=== PATIENT | male | born 1965 | race Caucasian/White ===

== ENCOUNTER 2017-09-27 11:03 | Emergency (ER) | payer MEDICAID ==
[~2017-09-27] VITALS: Ht 177.8 cm; Wt 70.0 kg
[~2017-09-27 11:03] MED LIST: ALBU18HF2 INH; AMLO5TAB PO; ATEN25TA PO; ATOR20TA66 PO; BENZ-34 PO; BUDE10.24 IH; IBUP-1986 PO; LISI30TA4 PO; TERA2CAP4 PO; [UNRECOGNIZED DRUG - CODE] INH
[2017-09-27] MEDS ORDERED: CLIN-80 PO (13:34)
[2017-09-27 13:38] VITALS: BP 121/91
== END 2017-09-27 13:39 | disposition home or self-care (01) ==
LOC: ER 11:04
DX: R51 Headache (principal); G89.29 Other chronic pain; J44.9 Chronic obstructive pulmonary disease, unspecified; I10 Essential (primary) hypertension; E78.00 Pure hypercholesterolemia, unspecified; M19.90 Unspecified osteoarthritis, unspecified site; F12.10 Cannabis abuse, uncomplicated; Z98.890 Other specified postprocedural states; Z88.0 Allergy status to penicillin; Z88.5 Allergy status to narcotic agent; Z79.899 Other long term (current) drug therapy
CPT/HCPCS: 99283

== ENCOUNTER 2018-03-25 12:13 | Emergency (ER) | payer MEDICAID ==
[~2018-03-25] VITALS: Ht 180.3 cm; Wt 89.0 kg
[~2018-03-25 12:13] MED LIST changes: -BENZ-34 PO; +BENZ-49 PO; +CLIN300C85 PO
[2018-03-25] MEDS ORDERED: normal saline 1000ml 1,000 ML IVB ONE (13:05)
[2018-03-25 13:13] VITALS: BP 103/63
== END 2018-03-25 13:14 | disposition home or self-care (01) ==
LOC: ER 12:14
DX: I95.9 Hypotension, unspecified (principal); E78.00 Pure hypercholesterolemia, unspecified; J44.9 Chronic obstructive pulmonary disease, unspecified; M19.90 Unspecified osteoarthritis, unspecified site; G89.29 Other chronic pain; F12.90 Cannabis use, unspecified, uncomplicated; I10 Essential (primary) hypertension; Z98.890 Other specified postprocedural states; Z88.0 Allergy status to penicillin; Z88.5 Allergy status to narcotic agent; Z79.899 Other long term (current) drug therapy; Z87.891 Personal history of nicotine dependence
CPT/HCPCS: 93005; 99284; J7030

== ENCOUNTER 2018-09-16 13:37 | Emergency (ER) | payer MEDICAID ==
[~2018-09-16] VITALS: Ht 180.3 cm; Wt 90.9 kg
[~2018-09-16 13:37] MED LIST changes: +ACET1TAB12 PO
[2018-09-16] MEDS ORDERED: METH-360 PO (15:09)
[2018-09-16] MEDS ORDERED: ketorolac tromethamine 15mg/ml inj. IM ONE (15:10)
[2018-09-16] MEDS ORDERED: orphenadrine citrate 60mg/2ml inj. IM ONE (15:10)
[2018-09-16] MEDS ORDERED: NAPR-56 PO (15:17)
[2018-09-16 15:44] VITALS: BP 152/98
== END 2018-09-16 15:45 | disposition home or self-care (01) ==
LOC: ER 13:37
DX: M54.5 Low back pain (principal); G89.29 Other chronic pain; I10 Essential (primary) hypertension; J44.9 Chronic obstructive pulmonary disease, unspecified; M19.90 Unspecified osteoarthritis, unspecified site; F12.10 Cannabis abuse, uncomplicated; E78.00 Pure hypercholesterolemia, unspecified; Z88.0 Allergy status to penicillin; Z79.899 Other long term (current) drug therapy
CPT/HCPCS: 96372; 99283; J1885; J2360

== ENCOUNTER 2019-08-20 10:38 | Emergency (ER) | payer MEDICAID ==
[~2019-08-20] VITALS: Ht 177.8 cm; Wt 91.8 kg
[~2019-08-20 10:38] MED LIST changes: +CLIN-90 PO; -CLIN300C85 PO; +METH-360 PO
[2019-08-20 10:50] VITALS: BP 155/94
[2019-08-20] MEDS ORDERED: ketorolac trometh inj. 60 MG/2 ML VIAL IM ONE (12:25)
== END 2019-08-20 12:38 | disposition home or self-care (01) ==
LOC: ER 10:39
DX: M76.61 Achilles tendinitis, right leg (principal); L72.0 Epidermal cyst; E78.00 Pure hypercholesterolemia, unspecified; I10 Essential (primary) hypertension; J44.9 Chronic obstructive pulmonary disease, unspecified; M19.90 Unspecified osteoarthritis, unspecified site; M54.5 Low back pain; F12.10 Cannabis abuse, uncomplicated; Z88.0 Allergy status to penicillin; Z98.890 Other specified postprocedural states; Z79.899 Other long term (current) drug therapy
CPT/HCPCS: 96372; 99283; J1885

== ENCOUNTER → 2020-06-12 | Outpatient (CLI) | payer MEDICAID ==
[~2020-06-12] MED LIST changes: -CLIN-90 PO; +CLIN-97 PO
== END | disposition home or self-care (01) ==
LOC: CARD DIAG 13:40
PROVIDERS: ATTEND Family Medicine
DX: I08.8 Other rheumatic multiple valve diseases (principal)
CPT/HCPCS: 71046; 93306

== ENCOUNTER 2021-08-30 09:20 | Emergency (ER) | payer MEDICAID ==
[~2021-08-30] VITALS: Ht 177.8 cm; Wt 88.6 kg
[2021-08-30 09:30] VITALS: BP 137/95
[2021-08-30] MEDS ORDERED: clindamycin 150mg capsule PO ONE (09:50)
[2021-08-30] MEDS ORDERED: rifampin 300mg capsule PO SCH (09:50)
[2021-08-30] MEDS ORDERED: TETanus/Pertussis (Acell)/Diphther VAC/PF (Tdap-Adult) 0.5ml syringe IMVAC ONE (10:00)
[2021-08-30] MEDS ORDERED: CLIN-142 PO (10:00)
== END 2021-08-30 10:56 | disposition home or self-care (01) ==
LOC: ER 09:21
DX: L03.114 Cellulitis of left upper limb (principal); E78.00 Pure hypercholesterolemia, unspecified; I10 Essential (primary) hypertension; J44.9 Chronic obstructive pulmonary disease, unspecified; G89.29 Other chronic pain; M54.9 Dorsalgia, unspecified; F12.10 Cannabis abuse, uncomplicated; Z88.0 Allergy status to penicillin; Z79.899 Other long term (current) drug therapy; W54.0XXA Bitten by dog, initial encounter; Y93.89 Activity, other specified; Y92.89 Other specified places as the place of occurrence of the external cause; Y99.8 Other external cause status
CPT/HCPCS: 73140; 90471; 90715; 99283

== ENCOUNTER 2022-06-28 11:31 | Emergency (ER) | payer MEDICAID ==
[~2022-06-28] VITALS: Ht 177.8 cm; Wt 89.0 kg
[~2022-06-28 11:31] MED LIST changes: -BENZ-49 PO; +TES100C PO
[2022-06-28 11:37] VITALS: BP 145/98
[2022-06-28] MEDS ORDERED: IBUP-1986 PO (13:39)
[2022-06-28] MEDS ORDERED: ketorolac trometh inj. 60 MG/2 ML VIAL IM ONE (13:40)
== END 2022-06-28 14:21 | disposition home or self-care (01) ==
LOC: ER 11:31
DX: S92.512A Displaced fracture of proximal phalanx of left lesser toe(s), initial encounter for closed fracture (principal); M79.675 Pain in left toe(s); E78.00 Pure hypercholesterolemia, unspecified; I10 Essential (primary) hypertension; J44.9 Chronic obstructive pulmonary disease, unspecified; M19.90 Unspecified osteoarthritis, unspecified site; G89.29 Other chronic pain; F12.90 Cannabis use, unspecified, uncomplicated; Z98.890 Other specified postprocedural states; Z88.0 Allergy status to penicillin; Z79.899 Other long term (current) drug therapy; Z79.2 Long term (current) use of antibiotics; W01.0XXA Fall on same level from slipping, tripping and stumbling without subsequent striking against object, initial encounter; Y93.89 Activity, other specified; Y92.89 Other specified places as the place of occurrence of the external cause; Y99.8 Other external cause status
CPT/HCPCS: 73660; 96372; 99283; J1885; L3260

== ENCOUNTER 2023-05-19 12:32 | Emergency (ER) | payer MEDICAID ==
[~2023-05-19] VITALS: Ht 180.3 cm; Wt 90.9 kg
[~2023-05-19 12:32] MED LIST changes: +BENZ-111 PO; -TES100C PO
[2023-05-19 12:51] VITALS: BP 147/92; PULSE 69; RESP 18; TEMP 97.9; O2SAT 95
== END 2023-05-19 16:25 | disposition left against medical advice (07) ==
LOC: ER 12:33
DX: S91.359A Open bite, unspecified foot, initial encounter (principal); Z53.21 Procedure and treatment not carried out due to patient leaving prior to being seen by health care provider; W54.0XXA Bitten by dog, initial encounter; Y93.9 Activity, unspecified; Y92.89 Other specified places as the place of occurrence of the external cause; Y99.8 Other external cause status
CPT/HCPCS: 99281

== ENCOUNTER 2023-12-26 15:17 | Outpatient (CLI) | payer MEDICAID | END 2023-12-26 23:59 | disposition home or self-care (01) | LOC: RAD 15:17 | PROVIDERS: ATTEND Physician Assistant | DX: R22.1 Localized swelling, mass and lump, neck (principal) | CPT/HCPCS: 76536 ==

== ENCOUNTER 2024-05-07 10:06 | Emergency (ER) | payer MEDICAID ==
[~2024-05-07] VITALS: Ht 177.8 cm; Wt 81.8 kg
[2024-05-07 10:10] VITALS: BP 163/89; PULSE 78; RESP 18; TEMP 97.8; O2SAT 18
--- NOTE | 2024-05-07 11:20 | NUR ---
pt did not want to wait for d/c vitals
== END 2024-05-07 11:26 | disposition home or self-care (01) ==
LOC: ER 10:07
DX: S83.8X2A Sprain of other specified parts of left knee, initial encounter (principal); F12.90 Cannabis use, unspecified, uncomplicated; E78.00 Pure hypercholesterolemia, unspecified; I10 Essential (primary) hypertension; E11.9 Type 2 diabetes mellitus without complications; J44.9 Chronic obstructive pulmonary disease, unspecified; M19.90 Unspecified osteoarthritis, unspecified site; G89.29 Other chronic pain; M54.9 Dorsalgia, unspecified; Z88.0 Allergy status to penicillin; Z79.899 Other long term (current) drug therapy; Z79.51 Long term (current) use of inhaled steroids; Z79.2 Long term (current) use of antibiotics; Z79.1 Long term (current) use of non-steroidal anti-inflammatories (NSAID); Z98.890 Other specified postprocedural states; X50.1XXA Overexertion from prolonged static or awkward postures, initial encounter; Y93.89 Activity, other specified; Y92.89 Other specified places as the place of occurrence of the external cause; Y99.8 Other external cause status
CPT/HCPCS: 73564; 99283

== ENCOUNTER 2024-12-31 17:42 | Emergency (ER) | payer MEDICAID ==
[~2024-12-31] VITALS: Ht 180.3 cm; Wt 84.8 kg
[2024-12-31 17:52] VITALS: TEMP 98
[2024-12-31 20:11] VITALS: BP 122/72; PULSE 74; RESP 16; O2SAT 97
[2024-12-31] MEDS ORDERED: PRED20TA PO (20:24)
[2024-12-31] MEDS ORDERED: ACYC-129 PO (20:24)
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
[2024-12-31] MEDS: valacyclovir 500mg tablet PO ONE (20:43)
[2024-12-31] MEDS: dexamethasone sod phosphate 10mg/ml inj IM STA (20:43)
== END 2024-12-31 20:48 | disposition home or self-care (01) ==
LOC: ER 17:42
DX: B02.9 Zoster without complications (principal); M54.2 Cervicalgia; E11.9 Type 2 diabetes mellitus without complications; E78.00 Pure hypercholesterolemia, unspecified; I10 Essential (primary) hypertension; F12.90 Cannabis use, unspecified, uncomplicated; J44.9 Chronic obstructive pulmonary disease, unspecified; M19.90 Unspecified osteoarthritis, unspecified site; Z88.0 Allergy status to penicillin; Z88.1 Allergy status to other antibiotic agents; Z88.8 Allergy status to other drugs, medicaments and biological substances
CPT/HCPCS: 96372; 99284; J1100

== ENCOUNTER 2025-08-26 19:43 | Inpatient (IN) | payer MEDICAID ==
[~2025-08-26] VITALS: Ht 177.8 cm; Wt 84.5 kg
[~2025-08-26 19:43] MED LIST changes: -BENZ-111 PO; +BENZ-268 PO; +CLIN-224 PO; -CLIN-97 PO; +PRED20TA PO
[2025-08-26 20:16] LABS: MEAN PLATELET VOLUME 9.8 FL (7.4-10.4); RED CELL DISTRIBUTION WIDTH 14.1 % (11.5-14.5)
--- NOTE | 2025-08-26 20:35 | RADIOLOGY REPORT ---
EXAM: DI CHEST,SINGLE VIEW TECHNIQUE: Single frontal chest radiograph CLINICAL HISTORY: CP COMPARISON: CHEST,TWO VIEWS on DOS: 06/12/20 FINDINGS/IMPRESSION: The lungs are clear. The cardiomediastinal silhouette is mildly enlarged, likely accentuated by technique. No pleural effusion or pneumothorax. No acute osseous abnormality.
[2025-08-26 20:36] LABS: CREATININE 0.79 MG/DL (0.60-1.10); PRO BRAIN NATRIURETIC PEPTIDE 70 PG/ML (0-125); eCRCL 100 ML/MIN; eGFR > 90 ML/MIN
[2025-08-26 20:49] LABS: TOTAL CARBON DIOXIDE 45.8 MMOL/L (24-32)
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
[2025-08-26] MEDS ORDERED: morphine 4 MG/ML inj SYRINge IV PRN ×2 (21:30)
[2025-08-26] MEDS ORDERED: ondansetron/PF 4mg/2ml inj IV PRN (21:30)
[2025-08-26] MEDS ORDERED: potassium Cl 20 mEq SR tablet PO PRN ×2 (21:30)
[2025-08-26] MEDS ORDERED: magnesium sulf-water 4G/100mL 100 ML IV PRN (21:30)
[2025-08-26] MEDS ORDERED: mag hydrox/Alum hydrox/simeth 30ml oral suspension PO PRN (21:30)
[2025-08-26] MEDS ORDERED: magnesium Cl slow-release 64mg tablet PO PRN (21:30)
[2025-08-26] MEDS ORDERED: magnesium sulf-water 2g/50mL 50 ML IV PRN (21:30)
[2025-08-26] MEDS ORDERED: magnesium hydroxide 30ml (MOM) UD suspension PO PRN (21:30)
[2025-08-26] MEDS ORDERED: potassium Cl 40MEQ/1/2NS 520ml 520 ML IV PRN (21:30)
[2025-08-26] MEDS: HYDROcodone/acetaminophen 5mg/325mg tablet PO ONE (21:48)
[2025-08-26 21:49] LABS: LEUKOCYTE ESTERASE ,URINE NEGATIVE (Neg); NITRITES, URINE NEGATIVE (Neg); OCCULT BLOOD,URINE NEGATIVE (Neg)
[2025-08-26 21:50] LABS: PHOSPHORUS 2.7 MG/DL (2.3-4.5)
[2025-08-26 21:52] LABS: UA COLLECTION TYPE CLN CATCH MIDSTREAM
--- NOTE | 2025-08-26 22:12 | HISTORY AND PHYSICAL-Residence ---
History & Physical Providers to CC Resident Creating Document: TAVIA FIELDS, VANESSA ~ History of Present Illness Primary Medical Doctor: Reason for Admit\Complaint: Chest pain History of Present Illness 60-year-old male(poor historian with inconsistent history) with past medical history of hypertension hyperlipidemia, obstructive sleep apnea, COPD on home oxygen of 4 L presented to the ER with a chief complaint of chest pain. He endorses chest pain, more on the left side, rated 4- 6/10 , stabbing type, more spreading over the left side of the chest aggravated with exertion but without relieving factors, not radiating to left upper arm and neck for the past one day. He reported shortness of breath, aggravated with walking for a while and not associated with orthopnea and PND. He reports chronic cough, low energy levels, swelling of both legs for the past couple of months. He feels foggy and trying to articulate the facts while speaking . He denied fever, palpitations, bladder and bowel disturbances, sleep and appetite disturbances, diaphoresis, weakness of limbs, slurring of speech, deviation of angle of mouth, seizures. Discussed code status with the patient and patient wants to be in full code Allergies: Coded Allergies: Penicillins (Unverified Allergy, Unknown, 08/26/25) Tolerated Cefepime and Rocephin during hospital stay 09/23/2016 Uncoded Allergies: beestings (Allergy, Mild, swelling, 12/04/10) Home Medications Home Medications Active Prednisone* (Prednisone) 20 Mg Tablet 1 Tab PO DAILY 9 Days Take three tabs p.o. once a day for three days. Then take two tabs once a day p.o. for three days. Then take one tab p.o. once a day for three days. Ibuprofen 800 Mg Tablet 1 Tab PO Q8H 10 Days Robaxin-750 (Methocarbamol) 750 Mg Tablet 1 Tab PO Q12H 10 Days Tylenol with Codeine #3 Tablet (Acetaminophen with Codeine) 1 Each Tablet 1 Tab PO Q6H PRN 7 Days Clindamycin HCL* (Clindamycin HCl) 300 Mg Capsule 1 Cap PO Q6H Pulmoneb Lt Compressor Nebul (Nebulizer/Compressor) 1 Each Each Unit INH QID PRN PRN Reported Terazosin HCl 2 Mg Capsule 1 Cap PO HS 30 Days Atorvastatin Calcium 20 Mg Tablet 1 Tab PO DAILY 30 Days Lisinopril 30 Mg Tablet 1 Tab PO DAILY 30 Days Atenolol 25 Mg Tablet 1 Tablet PO DAILY Ibuprofen 800 Mg Tablet 1 Tab PO Q8H PRN 10 Days Benzonatate 100 Mg Capsule 1 Cap PO Q8H 10 Days Ventolin Hfa (Albuterol) 8.5 Gm Inhaler 2 Puffs INH Q4HPRN PRN Amlodipine Besylate 5 Mg Tablet 1 Tablet PO DAILY Symbicort 80-4.5 Mcg Inhaler (Budesonide/Formoterol Fumarate) 10.2 Gm Hfa.aer.ad 2 Puff IH BID Past Medical History Past Medical History COPD(diagnosed at the age of 41 emphysema is diagnosed with the age of 24( on home oxygen of 4 L) Issues with breathing from (we do not have the diagnosis) Acute respiratory failure Metabolic alkalosis with respiratory acidosis Hypertension Cardiac arrest Bilateral pneumonia with streptococcal pneumoniae complicated by acute respiratory distress syndrome Herpes zoster Head injury History of impacted right ear cerumen GERD Past Surgical History Surgical History Comment Head injury -status post left subdural hematoma surgical evacuation Tracheostomy at the age of 3 months Family History Family History: (DM Type 2) Diabetes mellitus type 2 FATHER MOTHER Past Social History Social History Comment He is still actively smoking but he endorses that he had 3 cigarettes in the past 40 days(previously he used to take half to 1 pack per day started at the age of 11 Alcohol: Sober for 3 years Denied illicit drug use. He is living in his home with ex-girlfriend Content Publisher: Dr. bhatt Smoking: Quit greater than 1 year Alcohol Use: None Drug Use: Marijuana Lives with: S/O, Other Lives In: Home Occupation: disabled ROS All Other Systems: Reviewed and Negative ROS Reviewed in full and negative except positive pertinent as in HPI Exam Vitals: Vital Signs Date Time Temp Pulse Resp B/P (MAP) Pulse Ox O2 Delivery O2 Flow Rate FiO2 08/26/25 20:43 98.0 89 16 125/73 (90) 96 5.0 General: General: Alert, awake, oriented to time place person. In mild respiratory distress. Head: Normocephalic and atraumatic. Eyes: Conjunctival normal. EOMI. PERRL. ENT: Mucous membranes moist. Neck: Supple, trachea is midline. Chest: Bilateral normal vesicular breath sounds are heard. No crepitations are heard. Occasional bilateral suprascapular and interscapular wheezing are present. There is no accessory muscle use or retractions. Cardiac: RRR without murmurs, gallops, or rubs. Abd: Soft, nondistended, nontender, with normoactive bowel sounds. No guarding, rebound, or rigidity. Extremities: Normal strength. Normal range of motion. 1+ bilateral pitting edema is present. Back: No midline spinal or CVA tenderness. Skin: Warm and dry with no significant rash appreciated. Neuro: Higher mental functions are normal. Motor system: Tone, bulk, power are normal. Deep tendon reflexes are intact. Sensory system: No deficits. Cranial nerves 2-12 is grossly intact. No cerebellum dysfunction signs. No signs of meningitis. Diagnostic Data Last Recorded Lab Results: 08/26/25199908/26/251999 Diagnostic Data: Laboratory Tests Test 08/26/25 22:03 D-Dimer Comment Coagulation Comments Advance Care Planning Advanced Care plannin - 30 Minutes Additional Plan Chest pain likely secondary to possible unstable angina EKG showed left axis deviation, LAFB and inverted P waves and distinct to P-wave morphology and T-wave inversions in V1 V2 V3, AVF, QS complexes in V1 V2 V3 Troponins 10,11,11, proBNP of 70 Ordered Lexiscan and follow up with the results Started on aspirin 325 mg stat followed by 81 mg p.o. daily and nitroglycerin 0.4 mg sublingual p.r.n. for chest pain and atorvastatin 80 mg p.o. daily Consult patient sitter in a.m. if Lexiscan is positive Acute on chronic hypoxemic and hypercapnic respiratory failure 2/2 1)Acute exacerbation of advanced COPD 2)Obstructive sleep apnea There is a definitive oxygen demand rise when compared to the home oxygen levels of 4. WBC counts are 6.1 PCO2 is 45.8. Ordered ABG Sodium of 148 Oxygen demand was increased from 4 L(at home) to 5 L Started on, methylprednisolone 125 mg IV followed by 40 mg q.6 H IV Incentive spirometer flutter valve q.1h Albuterol q.4h p.r.n. and DuoNeb q.4h scheduled Covering Gram-positive, Gram-negative, atypical bacteria with ceftriaxone, azithromycin D-dimer is negative U tox showed cannabinoid positive Urinalysis is normal Normocytic normochromic anemia H&H is 11.8 and 37.2 Continue to monitor H&H Hyperlipidemia Ordered lipid panel On home medications of atorvastatin 40 mg p.o. daily and we will continue Hypertension On amlodipine 5 mg p.o. daily, atenolol 25 mg p.o. daily, lisinopril 30 mg p.o. daily Current blood pressure is in normal level 125/73 and we will restart the medications after medication reconciliation Arthritis Chronic back pain On [place] and ibuprofen Questionable BPH We will continue terazosin Med rec is incompletely done. Review the medications once med rec was completely done. Tavia Fields IM resident, PGY 2 I discussed the case with the resident team We wet to see was asleep I suggest a pulm consult as well as cardiology to also see the pt suggest CT chest as well Date of Service: Aug 26, 2025 Billing Provider: MAMI CARRION MD, VENKATESH, RES Aug 26, 2025 22:12 MAMI CARRION MD Aug 27, 2025 04:32
[2025-08-26] MEDS ORDERED: ATOR40TA72 PO (22:23)
[2025-08-26] MEDS ORDERED: HYDR-3968 PO (22:23)
[2025-08-26] MEDS ORDERED: UMEC1BLS PO (22:23)
[2025-08-26] MEDS ORDERED: TIOT4MIS2 INH (22:23)
[2025-08-26 22:27] LABS: APTT 27 SECONDS (22-32); INR 1.0 INR
[2025-08-26 22:32] LABS: SQUAMOUS EPITHELIAL CELL,UR FEW /LPF (FEW)
[2025-08-26 23:04] LABS: URINE AMPHETAMINE SCREEN NEGATIVE (Neg); URINE BARBITUATE SCREEN NEGATIVE (Neg); URINE BENZODIAZEPINES SCREEN NEGATIVE (Neg); URINE CANNABINOID SCREEN POSITIVE (Neg); URINE COCAINE SCREEN NEGATIVE (Neg); URINE METHADONE SCREEN NEGATIVE (Neg); URINE OPIATE SCREEN POSITIVE (Neg); URINE PHENCYCLIDINE SCREEN NEGATIVE (Neg)
[2025-08-27] VITALS (28 sets, daily range): BP systolic 102–124; BP diastolic 53–80; PULSE 63–108; RESP 14–23; TEMP 97–97.9; O2SAT 90–98
[2025-08-27] MEDS ORDERED: albuterol 2.5 MG/3 ML nebule NEB PRN (00:20)
[2025-08-27] MEDS: heparin, porcine 5000 units/ml vial SQ SCH (00:34)
[2025-08-27] MEDS: CefTRIAXone/D5W-Rocephin 1gm 50 ML IV ONE (00:41)
[2025-08-27] MEDS ORDERED: aminophylline 250mg/10ml inj. IV PRN (01:00)
[2025-08-27] MEDS ORDERED: regadenoson 0.4mg/5ml syringe IV PRN (01:00)
[2025-08-27] MEDS ORDERED: metoprolol tartrate 1mg/ml inj IV PRN (01:00)
[2025-08-27] MEDS: aspirin 325mg tablet, delayed-release (Ecotrin) PO ONE (01:56)
[2025-08-27] MEDS: methylPREDNISolone sod succ/PF 40mg inj. IV SCH (02:01)
[2025-08-27] MEDS: ipratropium/albuterol 3ml nebule NEB SCH (02:25)
[2025-08-27 03:02] LABS: ABG BASE EXCESS 14.7 mmol/L (-2.0-3.0); ABG HCO3 45.6 mmol/L (21.0-28.0); ABG OXYGEN SATURATION 93.3 % (94.0-98.0); ABG PCO2 (T) 98.9 mmHg (35.0-48.0); ABG PH (T) 7.281 (7.350-7.450); ABG PO2 (T) 66.9 mmHg (83.0-108.0); FCOHb 2.4 % (0.5-1.5); FHHb 6.5 % (0.0-5.0); FIO2 36.0 mmHg/%; FLOW 4 L/min; FMetHb 0.8 % (0.0-1.5); FO2Hb 90.3 % (94.0-98.0); MODE NASAL CANNULA; PATIENT TEMPERATURE 36.8; TOTAL HEMOGLOBIN 12.3 G/dl (13.5-17.5)
[2025-08-27 05:17] LABS: ABG BASE EXCESS 14.2 mmol/L (-2.0-3.0); ABG HCO3 44.2 mmol/L (21.0-28.0); ABG OXYGEN SATURATION 93.8 % (94.0-98.0); ABG PCO2 (T) 89.3 mmHg (35.0-48.0); ABG PH (T) 7.312 (7.350-7.450); ABG PO2 (T) 71.9 mmHg (83.0-108.0); ALLEN'S TEST Modified; FCOHb 1.6 % (0.5-1.5); FHHb 6.1 % (0.0-5.0); FIO2 40.0 mmHg/%; FMetHb 0.7 % (0.0-1.5); FO2Hb 91.6 % (94.0-98.0); MODE COOL AEROSOL; PATIENT TEMPERATURE 37.0; RESPIRATORY RATE 12 b/min; TOTAL HEMOGLOBIN 12.3 G/dl (13.5-17.5)
[2025-08-27] MEDS ORDERED: acetaZOLAMIDE IV 500mg inj IV ONE (06:10)
[2025-08-27 07:05] LABS: MEAN PLATELET VOLUME 9.6 FL (7.4-10.4); RED CELL DISTRIBUTION WIDTH 14.3 % (11.5-14.5)
[2025-08-27 07:19] LABS: CHOL/HDL RATIO 1.9 (0.00-4.99); CREATININE 0.68 MG/DL (0.60-1.10); LDL CHOLESTEROL 70 MG/DL (50-100); eCRCL 116 ML/MIN; eGFR > 90 ML/MIN
--- NOTE | 2025-08-27 07:34 | ELECTROCARDIOGRAPH REPORT ---
[facility] Test Date: 2025-08-26 Test Time: 19:49:59 Pat Name: FREDO ROWLAND Department: EMERGENCY ROOM Room: [place] [address] B Gender: M [employer] Building: : 1965 Requested By: PAVAN WEATHERS Order Number: [id number] Reading MD: Dr. Juan Drake Measurements Intervals [place] Rate: 78 P: 77 SD: 139 QRS: 31 QRSD: 82 T: 79 QT: 376 QTc: 429 Interpretive Statements Sinus rhythm Probable left atrial enlargement Anterior infarct, old Baseline wander in lead(s) V5 Electronically Signed On 08-28-2025 21:14:[address] Juan Drake Please click the below link to view image of tracing.
[2025-08-27 07:38] LABS: TOTAL CARBON DIOXIDE 43.1 MMOL/L (24-32)
[2025-08-27] MEDS: K and/or MAG REPLACEMENT MC SCH (08:00)
[2025-08-27 08:03] LABS: ABG BASE EXCESS 9.4 mmol/L (-2.0-3.0); ABG HCO3 39.7 mmol/L (21.0-28.0); ABG OXYGEN SATURATION 95.5 % (94.0-98.0); ABG PCO2 (T) 89.5 mmHg (35.0-48.0); ABG PH (T) 7.265 (7.350-7.450); ABG PO2 (T) 77.5 mmHg (83.0-108.0); ALLEN'S TEST POSITIVE; FCOHb 2.1 % (0.5-1.5); FHHb 4.4 % (0.0-5.0); FIO2 40.0 mmHg/%; FMetHb 0.8 % (0.0-1.5); FO2Hb 92.7 % (94.0-98.0); MODE MASK - BIPAP; PATIENT TEMPERATURE 37.0; RESPIRATORY RATE 14 b/min; TIDAL VOLUME 518 mL; TOTAL HEMOGLOBIN 12.6 G/dl (13.5-17.5)
[2025-08-27] MEDS: docusate sod 100mg capsule PO SCH (08:53)
[2025-08-27] MEDS: aspirin 81mg, enteric-coated 1 TAB TABLET.DR PO SCH (08:53)
[2025-08-27] MEDS: azithromycin/NS 500mg/250ml 250 ML IV SCH (08:54)
[2025-08-27 11:19] LABS: ABG BASE EXCESS 5.7 mmol/L (-2.0-3.0); ABG HCO3 35.4 mmol/L (21.0-28.0); ABG OXYGEN SATURATION 88.8 % (94.0-98.0); ABG PCO2 (T) 81.5 mmHg (35.0-48.0); ABG PH (T) 7.256 (7.350-7.450); ABG PO2 (T) 55.9 mmHg (83.0-108.0); ALLEN'S TEST POSITIVE; FCOHb 1.8 % (0.5-1.5); FHHb 10.9 % (0.0-5.0); FIO2 32.0 mmHg/%; FLOW 3 L/min; FMetHb 0.8 % (0.0-1.5); FO2Hb 86.5 % (94.0-98.0); MODE NASAL CANNULA; PATIENT TEMPERATURE 37.0; TOTAL HEMOGLOBIN 12.7 G/dl (13.5-17.5)
--- NOTE | 2025-08-27 12:39 | CARDIOLOGY REPORT ---
APPROVED REPORT EXAM: Comprehensive 2D, Doppler, and color-flow Echocardiogram. Patient Location: 30[address] Blood Pressure: 124/80 mmHg Heart Rate: 67 bpm Rhythm: SINUS Indications PULMONARY HYPERTENSION HYPERTENSION HYPERLIPIDEMIA CHEST PAIN Transactional Paralegal: Bonny Schilling MD Previous echo: 06/12/20 [facility] (EF 50-55%, mild MR, mod TR) 2D Dimensions IVSd 1.1 (0.7-1.1cm) LVDd 4.5 cm PWd 1.3 (0.7-1.1cm) IVSs 1.4 (0.8-1.2cm) LVDs 3.2 (2.5-4.0cm) PWs 1.6 (0.8-1.2cm) LVOT Diameter 2.09 (1.8-2.4cm) LVEF(%) 56.7 (>50%) IVC 20.93 mm FS (%) 29.6 % SV 52.6 ml CO 4.5 L/min M-Mode Dimensions Left Atrium(MM) 4.50 (2.5-4.0cm) IVSd 1.11 (0.7-1.1cm) LVDd 5.05 (4.0-5.6cm) Aortic Root 2.23 (2.2-3.7cm) PWd 1.06 (0.7-1.1cm) IVSs 1.73 cm LVDs 3.60 (2.0-3.8cm) FS (%) 29 % PWs 1.30 cm ESV(Teich) 54.6 ml LVEF(%) 55 (>50%) Aortic Valve AoV Peak Gato. 143.9 cm/s AoV VTI 28.5 cm AO Peak GR. 8.3 mmHg AO Mean GR. 4 mmHg LVOT VTI 19.09 cm LVOT Peak Gato. 88.7 cm/s CELENA(VTI)/BSA 2.30 cm2/m2 CELENA (VTI) 2.30 cm2 AV DI 0.67 % Mitral Valve MV E Velocity 67.7 cm/s MV Peak Gr. 4 mmHg MV DECEL TIME 356 ms MV A Velocity 87.5 cm/s MV PHT 60 ms E/A Ratio 0.8 MVA (PHT) 3.67 cm2 MV VMax 104.5 cm/s Tricuspid Valve TR P. Velocity 232 cm/s RAP ESTIMATE 10 mmHg TR Peak Gr. 22 mmHg RVSP 32 mmHg Pulmonary Vein S1 Velocity 48.6 cm/s D2 Velocity 48.3 cm/s PVa Velocity 29.4 cm/s PVa Duration 112 msec LEFT VENTRICLE Normal LV size and function. Mild concentric hypertrophy. Overall LVEF is 55-60%. RIGHT VENTRICLE RV size and function appear normal. RVSP is estimated at 32 mmHg. ATRIA Left atrium is mildly dilated. AORTIC VALVE Trileaflet AV appears mildly sclerotic without gross stenosis or insufficiency by color and spectral flow Doppler. Poor Doppler angles due to lack of adequate imaging windows, quantitative data must be clinically correlated. MITRAL VALVE Mild MV annular calcification without stenosis. Trace regurgitation by color and spectral flow Doppler. TRICUSPID VALVE TV appears structurally normal with trace regurgitation by color and spectral flow Doppler. PULMONIC VALVE Pulmonic valve is not well visualized. GREAT VESSELS The aortic root is normal in size. IVC is upper limit normal in size and collapses greater than 50% with inspiration. PERICARDIUM Normal pericardium. No effusion. Other Information Study Quality: Adequate Conclusion Overall LVEF is 55-60%. Normal LV size and function. Mild concentric hypertrophy. RV size and function appear normal. RVSP is estimated at 32 mmHg. Trileaflet AV appears mildly sclerotic without gross stenosis or insufficiency by color and spectral flow Doppler. Poor Doppler angles due to lack of adequate imaging windows, quantitative data must be clinically correlated. Mild MV annular calcification without stenosis. Trace regurgitation by color and spectral flow Doppler. TV appears structurally normal with trace regurgitation by color and spectral flow Doppler. Pulmonic valve is not well visualized. Normal pericardium. No effusion.
--- NOTE | 2025-08-27 13:50 | RADIOLOGY REPORT ---
CLINICAL HISTORY: Slurred speech TECHNIQUE: Helical scanning was performed of the head from the skull base to the vertex. Multiplanar reconstructions were performed. This exam was performed according to our departmental dose optimization program. Up-to-date CT equipment and radiation dose reduction techniques are utilized as appropriate. CTDI 67 DLP 1369 COMPARISON: None FINDINGS: Evaluation is limited due to image degradation secondary to patient motion. There is no evidence for acute intracranial hemorrhage, acute ischemic changes, mass, mass effect, or extra-axial fluid collection. There is no hydrocephalus or midline shift. There is no effacement of the cerebral sulci and basal subarachnoid cisterns. The aguero-white matter differentiation is well maintained. There has been left frontal craniotomy. 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 The imaged paranasal sinuses are clear. IMPRESSION: No acute intracranial abnormality seen. Left frontal craniotomy. 4 mm cerebellar tonsillar ectopia.
--- NOTE | 2025-08-27 14:09 | RADIOLOGY REPORT ---
CT Chest without intravenous contrast INDICATION: hypoxemia, persistent chest pain TECHNIQUE: Multidetector spiral CT of the chest was performed from the lung apices to the upper abdomen. Axial, coronal and sagittal multiplanar reformats were performed. Radiation Dose : 1. Chest: CTDI volume is 16.35 mGy. Dose-length product is 536.74 mGy*cm The dose indicators for CT are the volume Computed Tomography (CT) Dose Index (CTDIvol) and the Dose Length Product (DLP), and are measured in units of mGy and mGy-cm, respectively. These indicators are not patient dose, but values generated from the CT scanner acquisition factors. The report includes radiation exposure data for exposures received during this examination. COMPARISON: DI CHEST,SINGLE VIEW on DOS: 08/26/25, CHEST,TWO VIEWS on DOS: 06/12/20 FINDINGS: Lower neck: Normal thyroid. Lungs: Central airways patent. Moderate diffuse centrilobular emphysema. No focal airspace disease. No suspect pulmonary nodules. Mild right basilar atelectasis. Heart/Vascular Structures: Mild multichamber cardiac enlargement. No pericardial effusion. Lymph Nodes: No adenopathy Pleura: No pleural effusion or significant pneumothorax. Musculoskeletal: No acute osseous abnormality. Soft tissues: Normal. Upper abdomen: Limited portions of the upper abdomen are unremarkable. IMPRESSION: Moderate emphysema. Radiation optimization: All CT scans at this facility use at least one of these dose optimization techniques: automated exposure control mA and/or kV adjustment per patient size (includes targeted exams where dose is matched to clinical indication) or iterative reconstruction.
[2025-08-27 15:39] LABS: ABG BASE EXCESS 9.2 mmol/L (-2.0-3.0); ABG HCO3 38.2 mmol/L (21.0-28.0); ABG OXYGEN SATURATION 94.4 % (94.0-98.0); ABG PCO2 (T) 76.4 mmHg (35.0-48.0); ABG PH (T) 7.317 (7.350-7.450); ABG PO2 (T) 69.5 mmHg (83.0-108.0); ALLEN'S TEST POSITIVE; FCOHb 1.4 % (0.5-1.5); FHHb 5.5 % (0.0-5.0); FIO2 36.0 mmHg/%; FMetHb 0.8 % (0.0-1.5); FO2Hb 92.3 % (94.0-98.0); MODE MASK - BIPAP; PATIENT TEMPERATURE 37.0; RESPIRATORY RATE 16 b/min; TIDAL VOLUME 643 mL; TOTAL HEMOGLOBIN 12.8 G/dl (13.5-17.5)
--- NOTE | 2025-08-27 17:33 | PROGRESS NOTE- Residence ---
Progress Note - Resident Providers to CC Resident Creating Document: MARLENY GAMBINO RES ~ Antibiotic Timeout Antibiotic Ordered?: Yes Subjective Patient was seen and examined at the bedside. He was on BiPAP overnight and reports improvement of the shortness for breath and resolution of the chest pain during the morning. Later in the day he was refusing to use BiPAP and was advised to continue at night. Objective Vital Signs Date Time Temp Pulse Resp B/P (MAP) Pulse Ox O2 Delivery O2 Flow Rate FiO2 08/27/25 15:42 98 16 Nasal Cannula 4.0 08/27/25 15:32 94 40 08/27/25 15:00 97.9 120/53 (75) Result Diagram: 08/27/25 0629 08/27/25 0629 Awake , alert, and oriented x4, mild respiratory distress HEENT: Atraumatic, normocephalic, EOMI, anicteric sclera ; pink conjunctiva Neck: Trachea midline. Supple, full range of motion, no JVD Cardiac: Regular rhythm, regular rate with no murmurs all over the precordium. Respiratory: Diminished air movement bilaterally, sparse expiratory wheezing , no rub or rales, Chest wall is symmetric and without deformity. Gastrointestinal: Abdomen symmetric, non-distended, soft, non-tender, normal bowel sounds x4 quadrant, normoactive, no hepatosplenomegaly Musculoskeletal: Trace pedal edema Skin: Warm and dry Coagulation Studies Laboratory Tests Test 08/26/25 22:03 Prothrombin Time 10.4 SECONDS (9.0-12.0) INR International Normalized Ratio 1.0 INR Activated Partial Thromboplast Time 27 SECONDS (22-32) D-Dimer 0.31 MG/L FEU (0-0.50) D-Dimer Comment Coagulation Comments Plan Plan Assessment This is a 70-year-old male patient with a past medical history of advanced COPD, hypoxemic respiratory failure, hypertension, admitted for COPD exacerbation, chest pain and hypercapnia. 1. Acute on chronic hypoxemic and hypercapnic respiratory failure COPD exacerbation Assessment - baseline is 4L/min, presents with worsening oxygen requirement and shortness for breath - ABG: CO2 98.9 -> 76.4; pH 7.28 -> 7.31; pO2 66.9, HCO3 45.9 - CXR: The lungs are clear. The cardiomediastinal silhouette is mildly enlarged. No pleural effusion or pneumothorax - Chest CT: Moderate diffuse centrilobular emphysema. No focal airspace disease. No suspect pulmonary nodules. Mild right basilar atelectasis. Plan - continuous BiPAP recommended - especially at bedtime - DuoNebs q.4 H scheduled - Solu-Medrol 62.5 mg b.i.d. - continue home LABA/LAMA/ICS - continue Diamox daily - continue ceftriaxone and azithromycin 2. Chest pain/rule out ACS Assessment - Heart score, 5 points - EKG: left axis deviation, nonspecific ST-T changes - Troponins 10,11,11, proBNP 70 - Echo: Mild concentric hypertrophy. Overall LVEF is 55-60%. Plan - pending Lexiscan - continue aspirin, metoprolol and atorvastatin 3. Hyperlipidemia - triglycerides 37, LDL 70, HDL 101 - continue atorvastatin On home medications of atorvastatin 40 mg p.o. daily and we will continue 4. Hypertension - well controlled - continue amlodipine 5 mg p.o. daily and lisinopril 30 mg p.o. daily 5. Other comorbidities Chronic back pain BPH - pain management as needed - continue terazosin Code Status: Full code DVT prophylaxis: Heparin Analgesia/sedation: Morphine/[place] Line/tube: PIV GI prophylaxis: None Nutrition: Heart healthy diet Prognosis: Guarded Disposition: Continue medical treatment. BiPAP recommended as tolerated. Resident attestation The above note has been reviewed and supervised by a senior resident PGY2/PGY3 Patient was seen, examined and discussed with the attending physician Dr Boyle Date of Service: Aug 27, 2025 Billing Provider: TORSTEN BOYLE MD Common Visit Codes: [id number] INP/OBS CARE(HIGH) MARLENY GAMBINO, VANESSA Aug 27, 2025 17:33 TORSTEN BOYLE MD Aug 27, 2025 19:44
[2025-08-27] MEDS: HYDROcodone/acetaminophen 5mg/325mg tablet PO PRN (20:02)
[2025-08-27] MEDS: CefTRIAXone/D5W-Rocephin 1gm 50 ML IV SCH (20:02)
[2025-08-28] VITALS (28 sets, daily range): BP systolic 93–121; BP diastolic 51–73; PULSE 73–112; RESP 16–24; TEMP 97.6–98.1; O2SAT 88–96
[2025-08-28] MEDS: ipratropium 0.5 MG/2.5ML nebule NEB SCH (07:09)
[2025-08-28 07:16] LABS: MEAN PLATELET VOLUME 10.8 FL (7.4-10.4); RED CELL DISTRIBUTION WIDTH 14.5 % (11.5-14.5)
[2025-08-28 07:37] LABS: CREATININE 0.71 MG/DL (0.60-1.10); TOTAL CARBON DIOXIDE 33.5 MMOL/L (24-32); eCRCL 111 ML/MIN; eGFR > 90 ML/MIN
[2025-08-28] MEDS: regadenoson 0.4mg/5ml syringe IV ONE (09:03)
--- NOTE | 2025-08-28 10:24 | RADIOLOGY REPORT ---
HISTORY: Unstable angina TECHNIQUE: At peak stress, 33.4 mCi of sestamibi was administered intravenously. Soon thereafter, gated SPECT imaging of the heart was performed with the patient in the supine position. At rest, 8.5 mCi of sestamibi was administered intravenously. Soon thereafter, gated SPECT imaging of the heart was performed with the patient in the supine position. FINDINGS: There is a small fixed perfusion defect at the inferior wall from apex to mid cavity. No reversible perfusion defect is seen. The left ventricular cavity is normal in size. Calculated LVEF is 64 %. No segmental wall motion abnormality. IMPRESSION: Small fixed perfusion defect at the inferior wall from apex to mid cavity. No reversible perfusion defect. Ejection fraction = 64%.
--- NOTE | 2025-08-28 12:33 | PROGRESS NOTE- Residence ---
Progress Note - Resident Providers to CC Resident Creating Document: MARLENY GAMBINO RES ~ Antibiotic Timeout Antibiotic Ordered?: Yes Subjective Patient was seen and examined at the bedside. He was on BiPAP overnight and reports improvement of the shortness for breath with occasional dry cough. No chest pain reported since admission. Objective Vital Signs Date Time Temp Pulse Resp B/P (MAP) Pulse Ox O2 Delivery O2 Flow Rate FiO2 08/28/25 11:49 16 08/28/25 11:05 94 Nasal Cannula 4.0 08/28/25 10:59 90 36 08/28/25 09:13 119/70 08/28/25 02:00 97.6 Result Diagram: 08/28/25 0635 08/28/25 0635 Awake , alert, and oriented x4, mild respiratory distress HEENT: Atraumatic, normocephalic, EOMI, anicteric sclera ; pink conjunctiva Neck: Trachea midline. Supple, full range of motion, no JVD Cardiac: Regular rhythm, regular rate with no murmurs all over the precordium. Respiratory: Diminished air movement bilaterally, sparse expiratory wheezing , no rub or rales, Chest wall is symmetric and without deformity. Gastrointestinal: Abdomen symmetric, non-distended, soft, non-tender, normal bowel sounds x4 quadrant, normoactive, no hepatosplenomegaly Musculoskeletal: Trace pedal edema Skin: Warm and dry Coagulation Studies Laboratory Tests Test 08/26/25 22:03 Prothrombin Time 10.4 SECONDS (9.0-12.0) INR International Normalized Ratio 1.0 INR Activated Partial Thromboplast Time 27 SECONDS (22-32) D-Dimer 0.31 MG/L FEU (0-0.50) D-Dimer Comment Coagulation Comments Plan Plan Assessment This is a 70-year-old male patient with a past medical history of advanced COPD, hypoxemic respiratory failure, hypertension, admitted for COPD exacerbation, chest pain and hypercapnia. 1. Acute on chronic hypoxemic and hypercapnic respiratory failure COPD exacerbation Assessment - baseline is 4L/min, presents with worsening oxygen requirement and shortness for breath - ABG: CO2 98.9 -> 76.4; pH 7.28 -> 7.31; pO2 66.9, HCO3 45.9 - CXR: The lungs are clear. The cardiomediastinal silhouette is mildly enlarged. No pleural effusion or pneumothorax - Chest CT: Moderate diffuse centrilobular emphysema. No focal airspace disease. No suspect pulmonary nodules. Mild right basilar atelectasis. Plan - continuous BiPAP recommended - especially at bedtime - DuoNebs q.4 H scheduled - Solu-Medrol 62.5 mg b.i.d. - continue home LABA/LAMA/ICS - continue Diamox daily - continue ceftriaxone and azithromycin, day 2 - antecipated discharge tomorrow 2. Chest pain resolved/ruled out ACS Assessment - Heart score, 5 points - EKG: left axis deviation, nonspecific ST-T changes - Troponins 10,11,11, proBNP 70 - Echo: Mild concentric hypertrophy. Overall LVEF is 55-60%. - Lexiscan: Small fixed perfusion defect at the inferior wall from apex to mid cavity. No reversible perfusion defect. Plan - continue aspirin, metoprolol and atorvastatin - cardiology follow-up outpatient 3. Hyperlipidemia - triglycerides 37, LDL 70, HDL 101 - continue atorvastatin 40mg 4. Hypertension - well controlled - continue amlodipine 5 mg p.o. daily and lisinopril 30 mg p.o. daily 5. Other comorbidities Chronic back pain BPH - pain management as needed - continue terazosin Code Status: Full code DVT prophylaxis: Heparin Analgesia/sedation: Morphine/[place] Line/tube: PIV GI prophylaxis: None Nutrition: Heart healthy diet Prognosis: Guarded Disposition: Continue medical treatment. BiPAP recommended as tolerated. Antecipated discharge tomorrow. Resident attestation The above note has been reviewed and supervised by a senior resident PGY2/PGY3 Patient was seen, examined and discussed with the attending physician Dr Boyle Date of Service: Aug 28, 2025 Billing Provider: TORSTEN BOYLE MD Common Visit Codes: [id number] INP/OBS CARE(HIGH) MARLENY GAMBINO, RES Aug 28, 2025 12:33 TORSTEN BOYLE MD Aug 28, 2025 18:22
[2025-08-29] VITALS (11 sets, daily range): BP systolic 108–144; BP diastolic 69–84; PULSE 73–99; RESP 15–23; TEMP 97.3–98.9; O2SAT 92–99
[2025-08-29 04:47] LABS: MEAN PLATELET VOLUME 10.4 FL (7.4-10.4); RED CELL DISTRIBUTION WIDTH 14.5 % (11.5-14.5)
[2025-08-29 05:02] LABS: CREATININE 0.67 MG/DL (0.60-1.10); TOTAL CARBON DIOXIDE 34.5 MMOL/L (24-32); eCRCL 118 ML/MIN; eGFR > 90 ML/MIN
[2025-08-29] MEDS: methylPREDNISolone sod succ/PF 40mg inj. IV SCH (07:31)
[2025-08-29] MEDS ORDERED: LEVO-65 PO (11:48)
[2025-08-29] MEDS ORDERED: NEBU-237 INH (11:48)
[2025-08-29] MEDS ORDERED: ALBU2.5V7 NEB (11:48)
[2025-08-29] MEDS ORDERED: PRED20TA PO (11:48)
--- NOTE | 2025-08-29 14:20 | DISCHARGE SUMMARY-Residence ---
Discharge Summary Providers to CC Resident Creating Document: MARLENY GAMBINO RES ~ Discharge Summary Admission Diagnosis: CHEST PAIN, ACUTE ON CHRONIC HYPOXEMIC HYPERCAPNIC RESPIRATORY FAILURE Hospital Course DATE OF ADMISSION: 08/26/25 DATE OF DISCHARGE: 08/29/25 Laboratory Tests Test 08/27/25 15:34 08/28/25 06:35 08/29/25 04:24 Blood Gas Specimen Type Arterial Blood Gas Puncture Site Lr O2 Saturation 94.4 % Arterial Blood pH (Temp corrected) 7.317 Arterial Blood pCO2 (Temp correct) 76.4 mmHg Arterial Blood pO2 (Temp corrected) 69.5 mmHg Arterial Blood PO2/FiO2 Ratio 1.93 mmHg/% Arterial Blood HCO3 38.2 mmol/L Arterial Blood Base Excess 9.2 mmol/L Arterial Blood Oxyhemoglobin 92.3 % Arterial Blood Carboxyhemoglobin 1.4 % Arterial Blood Methemoglobin 0.8 % Arterial Blood Deoxyhemoglobin 5.5 % Mario Test Positive Blood Gas Hemoglobin 12.8 G/dl Blood Gas Temperature 37.0 Blood Gas Set Respiration Rate 16 b/min Blood Gas Modality Mask - bipap FiO2 36.0 mmHg/% Blood Gas Tidal Volume 643 mL Blood Gas Critical Value Called To roderick Claire White Blood Count 13.0 X10'3 11.2 X10'3 Red Blood Count 3.92 X10'6 3.72 X10'6 Hemoglobin 12.1 g/dl 11.3 g/dl Hematocrit 38.3 % 35.9 % Mean Corpuscular Volume 97.6 FL 96.4 FL Mean Corpuscular Hemoglobin 30.8 PG 30.3 PG Mean Corpuscular Hemoglobin Concent 31.6 g/dL 31.4 g/dL Red Cell Distribution Width 14.5 % 14.5 % Platelet Count 144 X10'3 138 X10'3 Mean Platelet Volume 10.8 FL 10.4 FL Neutrophils (%) (Auto) 94.4 % 94.6 % Lymphocytes (%) (Auto) 3.3 % 3.6 % Monocytes (%) (Auto) 2.2 % 1.7 % Eosinophils (%) (Auto) 0 % 0 % Basophils (%) (Auto) 0.1 % 0.1 % Neutrophils # (Auto) 12.3 X10'3 10.6 X10'3 Lymphocytes # (Auto) 0.4 X10'3 0.4 X10'3 Monocytes # (Auto) 0.3 X10'3 0.2 X10'3 Eosinophils # (Auto) 0.0 X10'3 0.0 X10'3 Basophils # (Auto) 0.0 X10'3 0.0 X10'3 CBC Comment Sodium Level 145 MMOL/L 143 MMOL/L Potassium Level 3.9 MMOL/L 4.1 MMOL/L Chloride Level 105 MMOL/L 107 MMOL/L Carbon Dioxide Level 33.5 MMOL/L 34.5 MMOL/L Anion Gap 7 2 Blood Urea Nitrogen 28 MG/DL 35 MG/DL Creatinine 0.71 MG/DL 0.67 MG/DL Estimated GFR/1.73 m2 > 90 ML/MIN > 90 ML/MIN BUN/Creatinine Ratio 39.4 52.2 Glucose Level 146 MG/DL 147 MG/DL Calcium Level 9.4 MG/DL 9.0 MG/DL Magnesium Level 2.2 MG/DL 2.2 MG/DL Total Bilirubin 0.4 MG/DL 0.3 MG/DL Aspartate Amino Transf (AST/SGOT) 10 U/L 10 U/L Alanine Aminotransferase (ALT/SGPT) 11 U/L 10 U/L Alkaline Phosphatase 73 IU/L 60 IU/L Total Protein 6.8 G/DL 6.4 G/DL Albumin 3.4 G/DL 3.2 G/DL Globulin 3.4 G/DL 3.2 G/DL Albumin/Globulin Ratio 1.0 1.0 Chemistry Comments Discharge Diagnosis\\Comment: 1. Acute on chronic hypoxemic and hypercapnic respiratory failure COPD exacerbation 2. Chest pain resolved/ruled out ACS 3. Hyperlipidemia 4. Hypertension - well controlled 5. Other comorbidities Chronic back pain BPH Operations\\Procedures: None Consultants: None Complications: None Condition on DC: Stable New Medications: Albuterol Sulfate (Albuterol Sulfate) 2.5 Mg/3 Ml Vial.neb 1 VIAL NEB Q4HPRN PRN for wheezing, #150 ML 0 Refills Levofloxacin (Levofloxacin) 500 Mg Tablet 500 MG PO DAILY for 5 Days, #5 TAB Nebulizer (Nebulizer) 1 Each Each UNIT INH PRN for wheezing, #1 Prednisone* (Prednisone*) 20 Mg Tablet 2 TAB PO DAILY for 5 Days, #10 TAB Continued Medications: Atorvastatin Calcium (Atorvastatin Calcium) 40 Mg Tablet Hydrocodone Bit/Acetaminophen (Hydrocodon-Acetaminoph 7.5-325) 7.5 Mg-325 Mg Tablet 0.5-1 TAB PO TID Umeclidinium Brm/Vilanterol Tr (Umeclidinium-Vilantero 62.5-25) 62.5 Mcg-25 Mcg/Actuation Blst.w.dev 1 PUFFS PO DAILY Discharge Summary: History of present illness discharge instructions Patient was admitted with the following HPI: "60-year-old male(poor historian with inconsistent history) with past medical history of hypertension hyperlipidemia, obstructive sleep apnea, COPD on home oxygen of 4 L presented to the ER with a chief complaint of chest pain. He endorses chest pain, more on the left side, rated 4- 6/10 , stabbing type, more spreading over the left side of the chest aggravated with exertion but without relieving factors, not radiating to left upper arm and neck for the past one day. He reported shortness of breath, aggravated with walking for a while and not associated with orthopnea and PND. He reports chronic cough, low energy levels, swelling of both legs for the past couple of months. He feels foggy and trying to articulate the facts while speaking . He denied fever, palpitations, bladder and bowel disturbances, sleep and appetite disturbances, diaphoresis, weakness of limbs, slurring of speech, deviation of angle of mouth, seizures." Hospital course This is a 70-year-old male patient with a past medical history of advanced COPD, hypoxemic respiratory failure, hypertension, admitted for COPD exacerbation, chest pain and hypercapnia. He had severe respiratory acidosis which progressively improved with BiPAP. Patient was also treated with antibiotics, steroids and nebulizers, after which the dyspnea almost completely resolved. Before admission he also reported atypical chest pain, EKG, troponin and Lexiscan were negative for acute ischemia. Additionally she also complained of transient slurred speech but no focal neurological deficits, most likely secondary to hypercapnia. Head CT did not show any acute findings. Patient is stable to be discharged home with outpatient follow-up. Chest x-ray The lungs are clear. The cardiomediastinal silhouette is mildly enlarged, like ly accentuated by technique. No pleural effusion or pneumothorax. No acute osseous abnormality. Chest CT Lungs: Central airways patent. Moderate diffuse centrilobular emphysema. No focal airspace disease. No suspect pulmonary nodules. Mild right basilar atelectasis. Heart/Vascular Structures: Mild multichamber cardiac enlargement. No pericardial effusion. Head CT No acute intracranial abnormality seen. Left frontal craniotomy. 4 mm cerebellar tonsillar ectopia. Lexiscan Small fixed perfusion defect at the inferior wall from apex to mid cavity. No reversible perfusion defect. Echocardiogram Overall LVEF is 55-60%. Normal LV size and function. Mild concentric hypertrophy. RV size and function appear normal. RVSP is estimated at 32 mmHg. Trileaflet AV appears mildly sclerotic without gross stenosis or insufficiency by color and spectral flow Doppler. Poor Doppler angles due to lack of adequate imaging windows, quantitative data must be clinically correlated. Mild MV annular calcification without stenosis. Trace regurgitation by color and spectral flow Doppler. TV appears structurally normal with trace regurgitation by color and spectral flow Doppler. Pulmonic valve is not well visualized. Normal pericardium. No effusion. Discharge physical exam Awake , alert, and oriented x4, mild respiratory distress HEENT: Atraumatic, normocephalic, EOMI, anicteric sclera ; pink conjunctiva Neck: Trachea midline. Supple, full range of motion, no JVD Cardiac: Regular rhythm, regular rate with no murmurs all over the precordium. Respiratory: Diminished air movement bilaterally, sparse expiratory wheezing , no rub or rales, Chest wall is symmetric and without deformity. Gastrointestinal: Abdomen symmetric, non-distended, soft, non-tender, normal bowel sounds x4 quadrant, normoactive, no hepatosplenomegaly Musculoskeletal: No pedal edema Skin: Warm and dry Discharge medications See below Discharge instructions Follow-up with your primary care physician in 1-2 weeks Follow-up with pulp drier in two weeks Continue home inhalers and oxygen Take prednisone and levofloxacin for five days You might need a new sleep study for BiPAP at night Come back in case of worsening shortness for breath, chest pain, fever or productive cough or any concerning symptoms *Problems/Diagnosis: (1) Respiratory failure Status: Acute (2) Metabolic alkalosis with respiratory acidosis Status: Acute (3) Acute exacerbation of chronic obstructive airways disease Status: Acute (4) Hypoxemia Status: Acute Total Time Spent on D/C: > 30 Minutes Date of Service: Aug 29, 2025 Billing Provider: TORSTEN KIM MD Common Visit Codes: 81859-[id number] DISCH DAY >30min Problem Qualifiers (1) Respiratory failure: Chronicity: acute on chronic Respiratory failure complication: hypercapnia Qualified Codes: J96.22 - Acute and chronic respiratory failure with hypercapnia MARLENY GAMBINO, RES Aug 29, 2025 14:12 TORSTEN KIM MD Aug 29, 2025 18:10
[2025-09-03] MEDS ORDERED: ASPI-611 PO (15:19)
== END 2025-08-29 13:13 | disposition home or self-care (01) | DRG 140 ==
LOC: ER 19:43 → ED HOLD 21:35 → PCU 3S 22:59
PROVIDERS: ADMIT Internal Medicine; ATTEND Internal Medicine
PROC: 5A09357 Assistance with Respiratory Ventilation, Less than 24 Consecutive Hours, Continuous Positive Airway Pressure (ICD-10-PCS; 2025-08-27)
PROC: 4A02XM4 Measurement of Cardiac Total Activity, External Approach (ICD-10-PCS; principal; 2025-08-28)
PROC: 3E033HZ Introduction of Radioactive Substance into Peripheral Vein, Percutaneous Approach (ICD-10-PCS; 2025-08-28)
PROC: 5A09357 Assistance with Respiratory Ventilation, Less than 24 Consecutive Hours, Continuous Positive Airway Pressure (ICD-10-PCS; 2025-08-28)
DX: J44.1 Chronic obstructive pulmonary disease with (acute) exacerbation (principal); J96.21 Acute and chronic respiratory failure with hypoxia; J96.22 Acute and chronic respiratory failure with hypercapnia; I10 Essential (primary) hypertension; E11.9 Type 2 diabetes mellitus without complications; E78.5 Hyperlipidemia, unspecified; K21.9 Gastro-esophageal reflux disease without esophagitis; G47.33 Obstructive sleep apnea (adult) (pediatric); E78.00 Pure hypercholesterolemia, unspecified; G89.29 Other chronic pain; M54.89 Other dorsalgia; N40.0 Benign prostatic hyperplasia without lower urinary tract symptoms; Z87.891 Personal history of nicotine dependence
CPT/HCPCS: 36415; 36600; 70450; 71045; 71250; 78452; 80048; 80053; 80061; 80305; 81001; 82803; 83036; 83605; 83735; 83880; 84100; 84484; 85018; 85025; 85379; 85610; 85730; 87040; 87081; 92508; 92616; 93005; 93017; 93306; 94640; 94660; 94760; 99285; A4615; A7015; A9500; G0378; J0456; J0696; J1644; J2270; J2785; J2919; J7030; J7040